=== PATIENT | female | born 1990 | race Caucasian/White ===

== ENCOUNTER 2016-11-24 10:33 | Emergency (ER) | payer OTHER ==
[~2016-11-24] VITALS: Ht 157.5 cm; Wt 91.2 kg
[~2016-11-24 10:33] MED LIST: HYDROCODON-ACE1 EAC7 PO; IBUPROFEN 800800 MG PO; MELATONIN3 MG; NORCO 5-325 TA1 EACH PO; NORFLEX100 MG PO; ZANTAC 150MG T150 M1 PO
[2016-11-24 10:46] LABS: URINE BILIRUBIN NEGATIVE (Negative); URINE BLOOD TRACE (Negative); URINE COLOR YELLOW; URINE GLUCOSE-RANDOM* NEGATIVE (Negative); URINE KETONES NEGATIVE (Negative); URINE NITRITE NEGATIVE (Negative); URINE PROTEIN (DIPSTICK) NEGATIVE (Negative); URINE SPECIFIC GRAVITY >= 1.030 (1.003-1.035); URINE UROBILINOGEN 0.2 E.U./dl (0.2-1.0)
[2016-11-24 11:00] LABS: ABSOLUTE NEUTROPHILS 8.1 thou/uL (1.4-8.2); BASOPHILS 0.6 % (0.0-2.0); EOSINOPHILS 0.6 % (0.0-3.0); HEMATOCRIT 43.2 % (37.0-47.0); HEMOGLOBIN 14.6 gm/dL (12.0-15.0); LYMPHOCYTES 18.6 % (24.0-44.0); MCH 28.9 pg (26.0-34.0); MCHC 33.9 g/dL (28.0-37.0); MCV 85.4 fL (80.0-100.0); MONOCYTES 5.9 % (1.0-8.0); PLATELET COUNT 256 thou/uL (150-400); POLYS 74.3 % (36.0-66.0); RBC 5.06 mil/uL (4.20-5.00); RDW 13.4 % (10.5-14.5); WBC 10.9 thou/uL (4.0-11.0)
[2016-11-24 11:02] LABS: MANUAL DIFF NO
[2016-11-24] MEDS ORDERED: PRENATAL PO (11:09)
[2016-11-24 11:23] LABS: ALBUMIN 3.7 g/dL (3.4-5.0); CALCIUM 8.8 mg/dL (8.5-10.1); CREATININE 0.6 mg/dL (0.6-1.3); TOTAL BILIRUBIN 0.3 mg/dL (<0.1-1.0); TOTAL PROTEIN 7.2 g/dL (6.4-8.2)
[2016-11-24 11:42] LABS: POTASSIUM 3.7 mmol/L (3.5-5.1)
[2016-11-24] MEDS ORDERED: FLAGYL500 MG PO (13:13)
[2016-11-24 14:09] VITALS: BP 131/75
[2016-11-25 15:06] LABS: CHLAMYDIA TRACHOMATIS-PCR Negative (Negative); NEISSERIA GONORRHEA-PCR Negative (Negative)
== END 2016-11-24 14:09 | disposition home or self-care (01) ==
LOC: ER 10:33
PROVIDERS: Physician Assistant
DX: O23.591 Infection of other part of genital tract in pregnancy, first trimester (principal); Z3A.01 Less than 8 weeks gestation of pregnancy; O36.0110 Maternal care for anti-D [Rh] antibodies, first trimester, not applicable or unspecified; Z88.0 Allergy status to penicillin; F10.99 Alcohol use, unspecified with unspecified alcohol-induced disorder

== ENCOUNTER 2017-02-06 18:58 | Emergency (ER) | payer OTHER ==
[~2017-02-06] VITALS: Ht 165.1 cm; Wt 74.8 kg
[~2017-02-06 18:58] MED LIST changes: +FLAGYL500 MG PO; +PRENATAL PO
[2017-02-06 20:41] LABS: ABSOLUTE NEUTROPHILS 8.1 thou/uL (1.4-8.2); BASOPHILS 0.5 % (0.0-2.0); EOSINOPHILS 0.5 % (0.0-3.0); HEMATOCRIT 35.9 % (37.0-47.0); HEMOGLOBIN 12.5 gm/dL (12.0-15.0); LYMPHOCYTES 14.1 % (24.0-44.0); MANUAL DIFF NO; MCH 29.9 pg (26.0-34.0); MCHC 34.9 g/dL (28.0-37.0); MCV 85.8 fL (80.0-100.0); MONOCYTES 6.2 % (1.0-8.0); PLATELET COUNT 192 thou/uL (150-400); POLYS 78.7 % (36.0-66.0); RBC 4.18 mil/uL (4.20-5.00); RDW 13.4 % (10.5-14.5); WBC 10.3 thou/uL (4.0-11.0)
[2017-02-06 20:50] LABS: CREATININE 0.4 mg/dL (0.6-1.0); POTASSIUM 3.2 mmol/L (3.5-5.1)
[2017-02-06 22:39] VITALS: BP 119/60
== END 2017-02-06 23:22 | disposition home or self-care (01) ==
LOC: ER 18:58
PROVIDERS: Emergency Medicine
DX: O26.892 Other specified pregnancy related conditions, second trimester (principal); S16.1XXA Strain of muscle, fascia and tendon at neck level, initial encounter; R10.32 Left lower quadrant pain; Z88.0 Allergy status to penicillin; Z3A.17 17 weeks gestation of pregnancy; V89.2XXA Person injured in unspecified motor-vehicle accident, traffic, initial encounter; Y93.89 Activity, other specified; Y92.89 Other specified places as the place of occurrence of the external cause; Y99.8 Other external cause status

== ENCOUNTER 2018-03-14 12:31 | Emergency (ER) | payer OTHER ==
[~2018-03-14] VITALS: Ht 157.5 cm; Wt 88.5 kg
[2018-03-14 13:37] LABS: HEMATOCRIT 42.3 % (37.0-47.0); HEMOGLOBIN 14.2 gm/dL (12.0-15.0); MCH 28.2 pg (26.0-34.0); MCHC 33.6 g/dL (28.0-37.0); MCV 83.8 fL (80.0-100.0); RBC 5.05 mil/uL (4.20-5.00); RDW 14.4 % (10.5-14.5); WBC 11.3 thou/uL (4.0-11.0)
[2018-03-14 13:46] LABS: CALCIUM 8.9 mg/dL (8.5-10.1); CREATININE 0.6 mg/dL (0.6-1.0)
[2018-03-14 13:47] LABS: POTASSIUM 4.6 mmol/L (3.5-5.1)
[2018-03-14 16:20] VITALS: BP 126/72
[2018-03-14 16:24] LABS: URINE BILIRUBIN NEGATIVE (Negative); URINE BLOOD NEGATIVE (Negative); URINE CLARITY CLEAR; URINE COLOR YELLOW; URINE GLUCOSE-RANDOM* NEGATIVE (Negative); URINE KETONES NEGATIVE (Negative); URINE LEUKOCYTES-REFLEX NEGATIVE (Negative); URINE NITRITE-REFLEX NEGATIVE (Negative); URINE PROTEIN (DIPSTICK) NEGATIVE (Negative); URINE SPECIFIC GRAVITY 1.025 (1.005-1.035); URINE UROBILINOGEN 0.2 E.U./dl (0.2-1.0)
== END 2018-03-14 16:15 | disposition home or self-care (01) ==
LOC: ER 12:31
PROVIDERS: Emergency Medicine
DX: O20.0 Threatened abortion (principal); Z3A.08 8 weeks gestation of pregnancy; Z88.0 Allergy status to penicillin

== ENCOUNTER 2018-11-04 22:15 | Emergency (ER) | payer OTHER ==
[~2018-11-04] VITALS: Ht 157.5 cm; Wt 88.9 kg
[2018-11-04 23:06] LABS: ABSOLUTE NEUTROPHILS 4.3 thou/uL (1.4-8.2); BASOPHILS 0.6 % (0.0-2.0); EOSINOPHILS 1.5 % (0.0-3.0); HEMATOCRIT 40.4 % (37.0-47.0); HEMOGLOBIN 13.4 gm/dL (12.0-15.0); LYMPHOCYTES 21.4 % (24.0-44.0); MCH 26.6 pg (26.0-34.0); MCHC 33.1 g/dL (28.0-37.0); MCV 80.2 fL (80.0-100.0); MONOCYTES 9.8 % (1.0-8.0); PLATELET COUNT 255 thou/uL (150-400); POLYS 66.7 % (36.0-66.0); RBC 5.04 mil/uL (4.20-5.00); RDW 15.2 % (10.5-14.5); WBC 6.5 thou/uL (4.0-11.0)
[2018-11-04 23:08] LABS: URINE BILIRUBIN NEGATIVE (Negative); URINE BLOOD NEGATIVE (Negative); URINE CLARITY CLEAR; URINE COLOR YELLOW; URINE GLUCOSE-RANDOM* NEGATIVE (Negative); URINE KETONES NEGATIVE (Negative); URINE LEUKOCYTES NEGATIVE (Negative); URINE NITRITE NEGATIVE (Negative); URINE PROTEIN (DIPSTICK) NEGATIVE (Negative); URINE UROBILINOGEN 0.2 E.U./dl (0.2-1.0)
[2018-11-04 23:17] LABS: CALCIUM 9.1 mg/dL (8.5-10.1); CREATININE 0.8 mg/dL (0.6-1.0); POTASSIUM 3.1 mmol/L (3.5-5.1)
[2018-11-04 23:25] LABS: ALBUMIN 3.6 g/dL (3.4-5.0); TOTAL BILIRUBIN 0.4 mg/dL (<0.1-1.0); TOTAL PROTEIN 7.4 g/dL (6.4-8.2)
[2018-11-05] MEDS ORDERED: REGLAN 5 MG TAB5 MG PO (00:36)
[2018-11-05 00:46] VITALS: BP 156/84
== END 2018-11-05 00:47 | disposition home or self-care (01) ==
LOC: ER 22:15
PROVIDERS: Emergency Medicine
DX: O90.89 Other complications of the puerperium, not elsewhere classified (principal); R10.31 Right lower quadrant pain; G89.18 Other acute postprocedural pain; R11.2 Nausea with vomiting, unspecified; R51 Headache; I10 Essential (primary) hypertension; Z88.0 Allergy status to penicillin; Z98.890 Other specified postprocedural states

== ENCOUNTER 2020-10-15 08:49 | Emergency (ER) | payer OTHER ==
[~2020-10-15] VITALS: Ht 157.5 cm; Wt 43.1 kg
[~2020-10-15 08:49] MED LIST changes: +REGLAN 5 MG TAB5 MG PO
[2020-10-15 09:20] LABS: ABSOLUTE NEUTROPHILS 5.9 thou/uL (1.4-8.2); BASOPHILS 0.8 % (0.0-2.0); EOSINOPHILS 1.6 % (0.0-3.0); HEMATOCRIT 42.5 % (37.0-47.0); HEMOGLOBIN 13.6 gm/dL (12.0-15.0); LYMPHOCYTES 20.1 % (24.0-44.0); MCH 26.1 pg (26.0-34.0); MCHC 32.1 g/dL (28.0-37.0); MCV 81.3 fL (80.0-100.0); MONOCYTES 5.3 % (1.0-8.0); PLATELET COUNT 260 thou/uL (150-400); POLYS 72.2 % (36.0-66.0); RBC 5.23 mil/uL (4.20-5.00); RDW 14.8 % (10.5-14.5); WBC 8.2 thou/uL (4.0-11.0)
[2020-10-15 09:26] LABS: ANION GAP 10 mmol/L (7-16); BUN 14 mg/dL (7-18); CALCIUM 8.8 mg/dL (8.5-10.1); CHLORIDE 102 mmol/L (98-107); CO2 27 mmol/L (21-32); CREATININE 0.7 mg/dL (0.6-1.0); GLUCOSE 106 mg/dL (74-106); POTASSIUM 3.6 mmol/L (3.5-5.1); SODIUM 139 mmol/L (136-145)
[2020-10-15 09:36] LABS: ALBUMIN 3.8 g/dL (3.4-5.0); LIPASE 106 U/L (73-393); SGOT 7 U/L (15-37); SGPT 20 U/L (30-65); TOTAL BILIRUBIN 0.3 mg/dL (0.2-1.0); TROPONIN-I <0.06 ng/mL (<0.06)
--- NOTE | 2020-10-15 10:25 | EKG ---
[place] [address] [facility] [facility] [place] [address] ELECTROCARDIOGRAM REPORT Name: ESHTER SMALLWOOD Room [facility]: [facility] [id number] Admission: 10/15/20 Attend Phys: Discharge: Date of : [birth year] Report #: [id number] [facility] ED Test Date: 2020-10-15 Test Time: 08:55:25 Pat Name: ESTHER SMALLWOOD Department: Room: Gender: F Manager Servicing: BARBARA : 1990 Requested By: Maksim Azevedo Order Number: [id number] MD: Isak Baez Measurements Intervals [place] Rate: 93 P: 18 HI: 150 QRS: 0 QRSD: 103 T: 8 QT: 374 QTc: 466 Interpretive Statements Sinus rhythm Baseline wander in lead(s) V1 Compared to ECG 09/22/2011 10:40:33 No significant change Electronically Signed On 10-15-2020 10:25:18 DESIGN PRINTING MACHINE SETTER by Isak Baez [email or web address] <ELECTRONICALLY SIGNED> By: Isak Baez MD, [facility] 10/15/20 1025 0855 0855 Isak Baez MD, FACC /EPI
[2020-10-15] MEDS ORDERED: TOPROL XL50 MG PO (10:39)
[2020-10-15 11:20] VITALS: BP 138/85
--- NOTE | 2020-10-16 06:47 | EKG ---
[place] [address] [employer] [facility] [facility] [place] [address] ELECTROCARDIOGRAM REPORT Name: ESTHER SMALLWOOD [facility] [id number] Admission: 10/15/20 Attend Phys: Discharge: 10/15/20 Date of : [birth year] Report #: [id number] [facility] ED Test Date: 2020-10-15 Test Time: 10:21:33 Pat Name: ESTHER SMALLWOOD Department: Room: Gender: F Classification Clerk: MARYLOU : 1990 Requested By: Maksim Azevedo Order Number: [id number] MD: Isak Baez Measurements Intervals [place] Rate: 82 P: 12 MN: 176 QRS: 16 QRSD: 89 T: 9 QT: 364 QTc: 425 Interpretive Statements Sinus rhythm Compared to ECG 10/15/2020 08:55:25 No significant changes Electronically Signed On 10-16-2020 6:47:43 SECURITY TECH by Isak Baez [email or web address] <ELECTRONICALLY SIGNED> By: Isak Baez MD, [facility] 10/16/20 0647 1021 1021 Isak Baez MD, FACC /EPI
== END 2020-10-15 11:21 | disposition home or self-care (01) ==
LOC: ER 08:49
PROVIDERS: Emergency Medicine
DX: R07.9 Chest pain, unspecified (principal); I10 Essential (primary) hypertension; Z88.0 Allergy status to penicillin